=== PATIENT | female | born 1965 | race African-American/Black ===

== ENCOUNTER → 2016-05-28 | Day surgery (SDC) | payer OTHER ==
[2016-05-28] VITALS (8 sets, daily range): BP systolic 122–134; BP diastolic 76–84
[~2016-05-28] VITALS: Ht 154.3 cm; Wt 74.8 kg
[~2016-05-28] MED LIST: FLORANEX TABLE1 EAC1 PO; LR 1000ml 1,000 ML IVLG ONE; LR 1000ml 1,000 ML IVLG SCH; LR 1000ml ONE; Propofol 10mg/ml 20ml IV ONE; SOMA350 MG PO
--- NOTE | 2016-05-28 10:35 | Short Stay Surgery H&P ---
History of Present Illness History of Present Illness Chief Complaint Abdominal pains, GERDs R/O Peptic Ulcer/colitis. HPI Bonny Lewis is a 50 year old female who was admitted on for GERDS/abdominal pains. Patient History Allergies: Coded Allergies: ACETAMINOPHEN (Verified Allergy, Intermediate, Rash/Hives, 05/27/16) HYDROCODONE (Verified Allergy, Intermediate, Rash/Hives, 05/27/16) PAST MEDICAL HISTORY: (1) Hyperlipidemia Past Surgeries: Social History: Medication History Scheduled Acidophilus/Bulgaricus (Floranex Tablet), 1 EACH PO DAILY, (Reported) Scheduled PRN Carisoprodol* (Soma*), 350 MG PO Q6H PRN for Abdominal cramps, (Reported) Review of Systems Cardiovascular: Reports: no symptoms Respiratory: Reports: no symptoms Skeletal: Reports: no symptoms Gastrointestinal: Reports: gastro esophageal reflux disease Genitourinary: Reports: no symptoms Neurologic: Reports: no symptoms Endocrine: Reports: no symptoms Hematologic: Reports: no symptoms Physical Exam Vital Signs Last Vital Signs Date Time Temp Pulse Resp B/P Pulse Ox O2 Delivery O2 Flow Rate FiO2 05/28/16 09:08 98.2 79 18 133/80 100 Room Air Skin: normal HENT: normal Heart: normal Lungs: normal Abdomen: normal Extremities: normal Genitourinary: normal Plan Plan of Care Uppr and lower GI endoscopies Preop Interventions None. Summary of Findings See the reports. Final Diagnosis: Attestation Are the patient's medical conditions optimized for surgery? Attestation Response: yes SO MERCADO May 28, 2016 10:35
--- NOTE | 2016-05-28 10:36 | Pre-Procedure Note/Attestation ---
Pre-Procedure Note/Attestation Complete Prior to Procedure Planned Procedure: left Procedure Narrative: the endoscopic examination of the upper and the lower GI tract. Indications for Procedure Pre-Operative Diagnosis: R/O Peptic ulcer/colitis Attestation I attest that I discussed the nature of the procedure; its benefits; risks and complications; and alternatives (and the risks and benefits of such alternatives ), prior to the procedure, with the patient (or the patient's legal benefits representative). I attest that, if there was a reasonable possibility of needing a blood transfusion, the patient (or the patient's legal benefits representative) was given the [place] [employer] [facility] standardized written summary, pursuant to the Gerard Joshua Blood Safety Act ([place] Health and Safety Code # 1645, as amended). I attest that I re-evaluated the patient just prior to the surgery and that there has been no change in the patient's H&P, except as documented below: ROGELIOSAID May 28, 2016 10:36
--- NOTE | 2016-05-28 10:42 | Anethesia Preoperative Eval ---
Anesthesia Pre-op PMH/ROS General Date of Evaluation: May 28, 2016 Time of Evaluation: 10:38 Anesthesiologist: Narendra ASA Score: ASA 2 Mallampati Score Class I : Soft palate, uvula, fauces, pillars visible Class II: Soft palate, uvula, fauces visible Class III: Soft palate, base of uvula visible Class IV: Only hard plate visible Mallampati Classification: Class II Surgeon: Johan Diagnosis: GERD/screening Surgical Procedure: EGD/Colonoscopy Anesthesia History: none Family History: no anesthesia problems Allergies: Coded Allergies: ACETAMINOPHEN (Verified Allergy, Intermediate, Rash/Hives, 05/27/16) HYDROCODONE (Verified Allergy, Intermediate, Rash/Hives, 05/27/16) Medications: see eMAR Past Medical History Cardiovascular: Denies: CAD, HTN, MT, arrhythmia, other, valve dz Pulmonary: Denies: COPD, OSIRIS, asthma, other Gastrointestinal/Genitourinary: Denies: CRI, ESRD, GERD, other Neurologic/Psychiatric: Denies: CVA, TIA, dementia, depression/anxiety, other Endocrine: Denies: DM, hypothyroidism, other, steroids HEENT: Denies: [place] (L), [place] (R), cataract (L), cataract (R), glaucoma, other Hematology/Immune: Denies: DVT, anemia, bleeding disorder, other Musculoskeletal/Integumentary: Denies: DDD, DJD, OA, RA, edema, other PMH Narrative: GERD PSxH Narrative: partial MARIO Anesthesia Pre-op Phys. Exam Physician Exam Last Vital Signs Date Time Temp Pulse Resp B/P Pulse Ox O2 Delivery O2 Flow Rate FiO2 05/28/16 09:08 98.2 79 18 133/80 100 Room Air Constitutional: NAD Neurologic: CN 2-12 intact Cardiovascular: RRR Respiratory: CTA Gastrointestinal: S/NT/ND Airway Exam Mallampati Score: Class II MO: full ROM: full Teeth: intact Dentures: no lower, no upper GORAN DAMIAN D.O. May 28, 2016 10:42
--- NOTE | 2016-05-28 10:56 | Immediate Post-Op Evaluation ---
Immediate Post-Op Evalulation Immediate Post-Op Evalulation Procedure: EGD with biopsy/colonoscopy Date of Evaluation: May 28, 2016 Time of Evaluation: 11:00 IV Fluids: 300ml Blood Products: none Estimated Blood Loss: none Urinary Output: due to void Blood Pressure Systolic: 141 Blood Pressure Diastolic: 95 Pulse Rate: 89 Respiratory Rate: 18 O2 Sat by Pulse Oximetry: 99 Temperature (Fahrenheit): 98 Pain Score (1-10): 0 Nausea: No Vomiting: No Complications none Patient Status: awake, reacts Hydration Status: adequate Drug: n/a GORAN DAMIAN D.O. May 28, 2016 10:56
--- NOTE | 2016-05-28 10:58 | Endoscopy Procedure Note ---
Endoscopy Procedure Note Indication for Procedure: GERDs/Abdominal pains Procedures Performed: EGD - Completely Normal Upper GI endoscopy. Biopsy was done per random from gastric body., colonoscopy - Normal total colonoscopy. Specimen: yes Pt Tolerated Procedure Well: Yes Estimated Blood Loss: none Anesthesiologist: Dr. Linares Anesthesia: moderate sedation Medication Given: see anesthesia record Implant(s) used?: No 50 yrs or older w/o bx or poly: No 10yrs. F/U not recommended: Yes If not recommended, why?: 10 yrs. F/U needed: Yes <3yrs. since last colonoscopy: No Med reason:<3 yrs.: System Reason:<3 yrs.: SO MERCADO May 28, 2016 10:58
--- NOTE | 2016-05-28 11:00 | Discharge Instructions ---
Discharge Instructions Discharge Instructions Follow up with: Visit the doctor at his office after 2 weeks. For Congestive Heart Failure Reminder Report to your physician any weight gain of 5 pounds or more in one week. SO MERCADO May 28, 2016 10:59
--- NOTE | 2016-05-28 11:12 | 48 Hour Post Anesthesia Eval ---
Post Anesthesia Evaluation Procedure: EGD with biopsy/colonoscopy Date of Evaluation: May 28, 2016 Time of Evaluation: 11:11 Blood Pressure Systolic: 134 0: 76 Pulse Rate: 91 Respiratory Rate: 16 Temperature (Fahrenheit): 98.4 O2 Sat by Pulse Oximetry: 99 Airway: patent Nausea: No Vomiting: No Pain Intensity: 0 Hydration Status: adequate Cardiopulmonary Status: stable Mental Status/LOC: patient returned to baseline Follow-up Care/Observations: as per GI Post-Anesthesia Complications: none Follow-up care needed: N/A GORAN DAMIAN D.O. May 28, 2016 11:12
--- NOTE | 2016-05-28 23:29 | Operative Note - Dictated ---
DATE OF OPERATION: 05/28/2016 REFERRING PHYSICIAN: Dr. Paulino. PREOPERATIVE DIAGNOSIS: Abdominal pain. POSTOPERATIVE DIAGNOSIS: Completely normal total colonoscopy. MEDICATION USED: Per Dr. Linares, anesthesiologist. INSTRUMENT: GIF Olympus videocolonoscope. DESCRIPTION OF PROCEDURE: The patient was told about risks and benefits of the procedure, which she accepted and signed the informed consent. She was then put on the left lateral decubitus position. After adequate IV sedation, the scope was gently passed through the anal area and a retroflexion maneuver of the scope, which was applied here did not reveal any major pathology such as tumors, polyps, hemorrhoids, etc. At this time, the scope was advanced into normal looking rectum and introduced into the rectosigmoid area gradually and introduced into the left descending colon. All these areas were remained to be normal. There was some high redundancy however. The colon cleanup was substandard, however, multiple irrigation had to be given to evaluate the colon completely. Finally, the scope reached to the splenic flexure from there into transverse colon, hepatic flexure, right colon all the way to the base of the cecum. All these areas remained to be completely normal and no particular intraluminal abnormality was noticed. Finally, within 8 minutes, the scope was gradually withdrawn and re-evaluation of the colon did not reveal any pathology. The patient tolerated the procedure well and left the endoscopy room in good condition. Said Vannessa Prado DR: MORENO JOB#: [id number] CC:
--- NOTE | 2016-05-29 00:08 | History and Physical Report ---
DATE OF ADMISSION: 05/28/2016 PREOPERATIVE HISTORY AND PHYSICAL REFERRING PHYSICIAN: Dr. Paulino. HISTORY OF PRESENT ILLNESS: This patient was referred by Dr. Paulino. The applicant is a 50-year-old female, who is being seen prior to undergoing the procedure for upper and lower GI endoscopy for which he has been scheduled to receive for evaluation of her GI symptoms that she has been complaining subsequent to work injury. Ms. Joshua Draper basically has been complaining of pain over the upper and lower part of the abdomen, particular located over the left upper quadrant of moderate severe intensity, which she is recurrent on a regular basis. She reported that she has been experiencing these symptoms almost for the past 6 to 7 months gradually increasing. Also, she complained of experiencing pain over the mid upper abdominal area over the epigastric section that she has had these symptoms of gastroesophageal reflux, GERD as well for which she has been prescribed Nexium. She also reports that occasionally she does have difficulty swallowing consistent with dysphagia. She, however, eports that her arthritis is normal. There has been no any history of major rectal upper gastrointestinal bleeding episodes. She denies any change in bowel movements as she does have 2 bowel movements on a daily bases. The applicant was injured at job site. 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 She is also exposed to gas and fumes. Subsequently injury she received physical therapy and followup with Dr. Paulino. PAST MEDICAL HISTORY: Basically nonsignificant for hypercholesteremia. PAST SURGICAL HISTORY: Spinal cord operation tubal ligation, and toe amputation, possible right knee surgery on the old report. HABITS: The applicant does not smoke nor she drinks, cigarettes or does any use of illicit drugs. PRESENT MEDICATION: Omeprazole? Nexium and Soma. REVIEW OF SYSTEMS: Basically history of present illness. PHYSICAL EXAMINATION: GENERAL: Reveals an alert and well-oriented female, does not seem to be in acute distress. VITAL SIGNS: All stable. HEENT: Normocephalic. Pupils are equal in size and reactive to light and accommodation. No jaundice. Per oral cavity, midline well hydrated. No ulcers. NECK: Supple. No JVD, thyromegaly, or adenopathy. CHEST: Clear to auscultation and percussion. No rales or rhonchi. HEART: S1 and S2 normal. Regular rhythm. No gallops or murmur. ABDOMEN: Soft, mildly tender over the upper part of the abdomen, but there is no organomegaly, no masses, no ascites, and no percussion tenderness. Bowel sounds are present. EXTREMITIES: Unremarkable. SKIN AND LYMPHATICS: Revealed evidence of to basically over the right hip area with incisional surgery over that area as well. PREOPERATIVE IMPRESSION: 1. Epigastric pain of uncertain etiology. Rule out gastroesophageal reflux. Rule out peptic ulcer disease aggravated by use of non-steroidal antiinflammatory drugs medication. 2. Abdominal pain. Generalized left upper quadrant pain of uncertain etiology, rule out acid induced colitis or bowel syndrome. 3. History of work related injury. Orthopedic diagnosis work-related. RECOMMENDATIONS: The applicant seems to be stable at this time to undergo the procedure of upper and lower GI endoscopy for which he has been scheduled. She understands the risks and benefits and signed the consent. Said Vannessa Prado DR: Hannah JOB#: [id number] CC: TORIN
--- NOTE | 2016-05-29 01:48 | Operative Note - Dictated ---
REFERRING PHYSICIAN: Dr. Paulino DATE OF OPERATION: 05/28/2016 REFERRING PHYSICIAN: Dr. Paulino. PREOPERATIVE DIAGNOSIS: Abdominal pain, epigastric pain, history of gastroesophageal reflux. POSTOPERATIVE DIAGNOSIS: Completely normal upper gastrointestinal endoscopy. Biopsy was taken per random from gastric body. MEDICATIONS USED: Per Dr. Linares, anesthesiologist. INSTRUMENT: GIF Olympus videocolonoscope. DESCRIPTION OF PROCEDURE: The patient after arriving endoscopy unit, she was told about risks and benefits of the procedure, which she accepted and signed the informed consent. She was then put on the left lateral decubitus position. After adequate IV sedation, the scope was gently passed through the cricopharyngeal area, was lodged into the upper esophagus, and gradually advanced towards gastroesophageal junction. The entire length of the esophagus looked normal. No evidence of varices, inflammatory process, ulceration, etc., was found. GE junction also looked normal without any evidence of Jones's or hiatal hernia. At this time, the scope was advanced into the stomach. Gastric cavity was distended and gradually the areas of the fundus, and the body, and the antrum of the stomach were examined gradually revealing no abnormality. There was no ulcers, tumors, polyps, gastritis, etc. At this point, one random biopsy from gastric body obtained and subsequently, scope was passed through normal looking pylorus, first and second portion of duodenum were found also to be normal. Finally, scope was pulled out and the procedure was terminated. The patient tolerated the procedure well. Said Vannessa Prado DR: KRISTI JOB#: [id number] CC:
== END | disposition home or self-care (01) ==
LOC: GAS 08:25
DX: K29.50 Unspecified chronic gastritis without bleeding (principal); R10.12 Left upper quadrant pain; Z87.19 Personal history of other diseases of the digestive system; E78.5 Hyperlipidemia, unspecified; Z88.6 Allergy status to analgesic agent; Z88.5 Allergy status to narcotic agent; Z90.710 Acquired absence of both cervix and uterus
CPT/HCPCS: 43239; 45378; J2704; J7120; 94003; 94150